=== PATIENT | male | born 1965 | race Caucasian/White ===

== ENCOUNTER 2016-06-04 05:57 | Inpatient (IN) | payer MEDICAID ==
[~2016-06-04] VITALS: Ht 165.1 cm; Wt 61.2 kg
[2016-06-04 06:19] VITALS: BP 172/97; PULSE 111; RESP 20; TEMP 98; O2SAT 96
[2016-06-04] MEDS ORDERED: chlordiazePOXIDE HCL 25 MG CAPSULE PO ONE ×2 (06:30→07:30)
[2016-06-04] MEDS ORDERED: cloNIDine HCL 0.1 MG TABLET PO ONE (06:30)
[2016-06-04] MEDS ORDERED: ATENOLOL 50 MG TABLET (TENORMIN) PO ONE (06:45)
[2016-06-04] MEDS ORDERED: NACL 0.9% 1,000 ML IV ONE (07:21)
[2016-06-04] MEDS ORDERED: LORazepam 2 MG/ML VIAL (FOR ER USE) IVP ONE (07:30)
[2016-06-04 07:38] LABS: BILIRUBIN,URINE NEGATIVE (NEGATIVE); BLOOD, URINE NEGATIVE (NEGATIVE); CLARITY/URINE CLEAR (CLEAR); COLOR,URINE YELLOW (YELLOW); GLUCOSE,URINE NEGATIVE (NEGATIVE); KETONES,URINE NEGATIVE (NEGATIVE); LEUKOCYTE ESTERASE ,URINE NEGATIVE (NEGATIVE); NITRITE, URINE NEGATIVE (NEGATIVE); PROTEIN URINE NEGATIVE (NEGATIVE); UROBILINOGEN,URINE 0.2 (0.2-1.0)
[2016-06-04 07:56] LABS: BASOPHILS % (AUTO) 0.5 % (0.0-2.0); EOSINOPHILS % (AUTO) 0.6 % (0.0-4.0); HEMATOCRIT 45.4 % (36-54); HEMOGLOBIN 15.3 g/dL (14.0-18.0); LYMPHOCYTES # (AUTO) 1.2 K/uL (1.0-5.5); LYMPHOCYTES % (AUTO) 15.6 % (20.5-51.5); MEAN CORPUSCULAR HEMOGLOBIN 31 pg (27-31); MEAN CORPUSCULAR HGB CONC 34 % (32-36); MEAN CORPUSCULAR VOLUME 92 fL (79.0-98.0); MONOCYTES # (AUTO) 0.5 K/uL (0.0-1.0); MONOCYTES % (AUTO) 6.8 % (1.7-9.3); NEUTROPHILS % (AUTO) 76.5 % (40.0-70.0); PLATELET COUNT (AUTO) 149 K/uL (130-430); RED BLOOD CELL COUNT(AUTO) 4.96 MIL/uL (4.2-6.2); RED CELL DISTRIBUTION WIDTH 13.6 % (9.0-15.0); WHITE BLOOD COUNT (AUTO) 7.7 K/uL (4.8-10.8)
[2016-06-04 08:00] LABS: PROTHROMBIN TIME 11.3 SECS (9.5-12.5)
[2016-06-04] MEDS ORDERED: FOLIC ACID 1 MG, THIAMINE HCL 100 MG, MAGNESIUM SULFATE 1 GM, MVI 10 ML in NACL 0.9% 1,... IV ONE (08:00)
[2016-06-04 08:03] LABS: BARBITURATE, URINE NEGATIVE (NEG <=200); BENZODIAZEPINE, URINE NEGATIVE (NEG <=150); CANNABINOID, URINE NEGATIVE (NEG <=50); COCAINE, URINE NEGATIVE (NEG <=150); METHAMPHETAMINES SCREEN,URINE NEGATIVE (NEG <=500); OPIATE, URINE NEGATIVE (NEG <=100); PHENCYCLIDINE SCREEN,URINE NEGATIVE (NEG <=25); UR TRICYCLIC ANTIDEPRESSANTS NEGATIVE (NEG <=300); URINE AMPHETAMINE NEGATIVE (NEG <=500); URINE METHADONE NEGATIVE (NEG <=200); URINE OXYCODONE SCREEN NEGATIVE (NEG <=100); URINE PROPOXYPHENE SCREEN NEGATIVE (NEG <=300)
[2016-06-04 08:04] LABS: CALCIUM 8.7 mg/dL (8.4-11.0); CREATININE 0.85 mg/dL (0.55-1.30); POTASSIUM 3.8 mmol/L (3.5-5.1)
[2016-06-04 08:09] LABS: ALBUMIN 4.2 g/dL (3.4-4.8); TOTAL BILIRUBIN 0.3 mg/dL (0.0-1.0); TOTAL PROTEIN, SERUM 8.4 g/dL (6.4-8.3)
[2016-06-04] MEDS ORDERED: NITROGLYCERIN LINGUAL 400 mCg/SPRAY TL ONE (08:30)
[2016-06-04] MEDS ORDERED: NITROGLYCERIN 1 INCH (GM) OINT. ONE (08:56)
[2016-06-04] MEDS ORDERED: NITROGLYCERIN 1 INCH (GM) OINT. TP ONE ×2 (09:00→10:45)
[2016-06-04 09:13] LABS: BARBITURATE, URINE NEGATIVE (NEG <=200); BENZODIAZEPINE, URINE NEGATIVE (NEG <=150); CANNABINOID, URINE NEGATIVE (NEG <=50); COCAINE, URINE NEGATIVE (NEG <=150); METHAMPHETAMINES SCREEN,URINE NEGATIVE (NEG <=500); OPIATE, URINE NEGATIVE (NEG <=100); PHENCYCLIDINE SCREEN,URINE NEGATIVE (NEG <=25); UR TRICYCLIC ANTIDEPRESSANTS NEGATIVE (NEG <=300); URINE AMPHETAMINE NEGATIVE (NEG <=500); URINE METHADONE NEGATIVE (NEG <=200); URINE OXYCODONE SCREEN NEGATIVE (NEG <=100); URINE PROPOXYPHENE SCREEN NEGATIVE (NEG <=300)
[2016-06-04] MEDS ORDERED: NITROGLYCERIN 0.4 MG TAB.SUBL SL PRN (10:45)
[2016-06-04] MEDS ORDERED: LORazepam 2 MG/ML VIAL IVP PRN (10:45)
[2016-06-04] MEDS ORDERED: ACETAMINOPHEN 325 MG TABLET PO PRN (10:45)
[2016-06-04 11:04] VITALS: BP 130/65; PULSE 70; RESP 18; TEMP 97; O2SAT 96
[2016-06-04] MEDS ORDERED: FLU VACC QS 2016-17(36MOS+)/PF 0.5 ML/SYR SYRINGE I.M. PRN (11:30)
[2016-06-04] MEDS ORDERED: PANTOPRAZOLE SODIUM 40 MG TAB PO ONE (12:45)
[2016-06-04] MEDS ORDERED: ASPIRIN 81 MG TAB.CHEW PO ONE (12:45)
[2016-06-04] MEDS: chlordiazePOXIDE HCL 25 MG CAPSULE PO SCH ×2 (15:04→20:50)
[2016-06-04 15:51] LABS: THYROID STIMULATING HORMONE 1.25 uIu/mL (0.34-4.82)
[2016-06-04 19:08] VITALS: BP 143/79; PULSE 65; RESP 18; TEMP 98.4; O2SAT 95
[2016-06-05] VITALS: BP 138/74; PULSE 60; RESP 20; TEMP 97.7; O2SAT 96
[2016-06-05 04:53] VITALS: BP 141/76; PULSE 66; RESP 18; TEMP 98; O2SAT 98
[2016-06-05 08:00] VITALS: BP 159/88; PULSE 67; RESP 18; TEMP 97.9; O2SAT 97
[2016-06-05 08:36] LABS: BASOPHILS % (AUTO) 0.2 % (0.0-2.0); EOSINOPHILS # (AUTO) 0.2 K/uL (0.0-0.4); EOSINOPHILS % (AUTO) 2.1 % (0.0-4.0); HEMATOCRIT 48.1 % (36-54); HEMOGLOBIN 16.2 g/dL (14.0-18.0); LYMPHOCYTES # (AUTO) 1.9 K/uL (1.0-5.5); LYMPHOCYTES % (AUTO) 23.7 % (20.5-51.5); MEAN CORPUSCULAR HEMOGLOBIN 30 pg (27-31); MEAN CORPUSCULAR HGB CONC 34 % (32-36); MEAN CORPUSCULAR VOLUME 90 fL (79.0-98.0); MONOCYTES # (AUTO) 0.6 K/uL (0.0-1.0); MONOCYTES % (AUTO) 7.4 % (1.7-9.3); NEUTROPHILS # (AUTO) 5.3 K/uL (1.8-7.7); NEUTROPHILS % (AUTO) 66.6 % (40.0-70.0); PLATELET COUNT (AUTO) 148 K/uL (130-430); RED BLOOD CELL COUNT(AUTO) 5.34 MIL/uL (4.2-6.2); RED CELL DISTRIBUTION WIDTH 13.6 % (9.0-15.0)
[2016-06-05] MEDS: chlordiazePOXIDE HCL 25 MG CAPSULE PO SCH ×3 (09:06→20:08)
[2016-06-05] MEDS: PANTOPRAZOLE SODIUM 40 MG TAB PO SCH (09:07)
[2016-06-05] MEDS: ASPIRIN 81 MG TAB.CHEW PO SCH (09:07)
[2016-06-05 09:50] LABS: CALCIUM 8.8 mg/dL (8.4-11.0); CREATININE 0.84 mg/dL (0.55-1.30); POTASSIUM 3.9 mmol/L (3.5-5.1); TOTAL BILIRUBIN 0.9 mg/dL (0.0-1.0)
[2016-06-05 09:51] LABS: ALBUMIN 3.8 g/dL (3.4-4.8); BILIRUBIN,DIRECT 0.2 mg/dL (0.0-0.3); TOTAL PROTEIN, SERUM 8.1 g/dL (6.4-8.3)
[2016-06-05] MEDS: FOLIC ACID 1 MG, THIAMINE HCL 100 MG, MAGNESIUM SULFATE 1 GM, MVI 10 ML in NACL 0.9% 1,... IV SCH (10:46)
[2016-06-05 11:07] LABS: HEPATITIS A AB, IgM Negative (Negative); HEPATITIS B CORE AB, IgM Negative (Negative); HEPATITIS B SURFACE AG Negative (Negative)
[2016-06-05 12:00] VITALS: BP 151/92; PULSE 62; RESP 21; TEMP 98; O2SAT 97
[2016-06-05] MEDS ORDERED: LISINOPRIL 10 MG TABLET (PRINIVIL) PO ONE (14:30)
[2016-06-05 16:00] VITALS: BP 138/81; PULSE 78; RESP 21; TEMP 97.2; O2SAT 97
[2016-06-05 20:00] VITALS: BP 136/85; PULSE 64; RESP 20; TEMP 98.1; O2SAT 97
[2016-06-06 00:20] VITALS: BP 133/80; PULSE 54; RESP 16; TEMP 98.6; O2SAT 98
[2016-06-06 03:39] VITALS: BP 134/76; PULSE 60; RESP 16; TEMP 97.6; O2SAT 96
[2016-06-06 06:38] LABS: BASOPHILS % (AUTO) 0.1 % (0.0-2.0); EOSINOPHILS # (AUTO) 0.3 K/uL (0.0-0.4); EOSINOPHILS % (AUTO) 6.4 % (0.0-4.0); HEMATOCRIT 44.3 % (36-54); HEMOGLOBIN 14.9 g/dL (14.0-18.0); LYMPHOCYTES # (AUTO) 0.9 K/uL (1.0-5.5); LYMPHOCYTES % (AUTO) 18.5 % (20.5-51.5); MEAN CORPUSCULAR HEMOGLOBIN 31 pg (27-31); MEAN CORPUSCULAR HGB CONC 34 % (32-36); MEAN CORPUSCULAR VOLUME 92 fL (79.0-98.0); MONOCYTES # (AUTO) 0.5 K/uL (0.0-1.0); MONOCYTES % (AUTO) 9.1 % (1.7-9.3); NEUTROPHILS # (AUTO) 3.4 K/uL (1.8-7.7); NEUTROPHILS % (AUTO) 65.9 % (40.0-70.0); PLATELET COUNT (AUTO) 106 K/uL (130-430); RED BLOOD CELL COUNT(AUTO) 4.82 MIL/uL (4.2-6.2); RED CELL DISTRIBUTION WIDTH 13.6 % (9.0-15.0)
[2016-06-06 07:16] LABS: WHITE BLOOD COUNT (AUTO) 5.1 K/uL (4.8-10.8)
[2016-06-06 07:25] LABS: CALCIUM 8.8 mg/dL (8.4-11.0); CREATININE 0.9 mg/dL (0.55-1.30); POTASSIUM 4.4 mmol/L (3.5-5.1)
[2016-06-06 07:40] VITALS: BP 134/86; PULSE 73; RESP 16; TEMP 96.1; O2SAT 98
[2016-06-06 07:52] LABS: ALBUMIN 3.6 g/dL (3.4-4.8); BILIRUBIN,DIRECT 0.1 mg/dL (0.0-0.3); TOTAL BILIRUBIN 0.7 mg/dL (0.0-1.0); TOTAL PROTEIN, SERUM 7.6 g/dL (6.4-8.3)
[2016-06-06] MEDS: ASPIRIN 81 MG TAB.CHEW PO SCH (08:43)
[2016-06-06] MEDS: chlordiazePOXIDE HCL 25 MG CAPSULE PO SCH ×2 (08:44→17:07)
[2016-06-06] MEDS: PANTOPRAZOLE SODIUM 40 MG TAB PO SCH (08:44)
[2016-06-06] MEDS: FOLIC ACID 1 MG, THIAMINE HCL 100 MG, MAGNESIUM SULFATE 1 GM, MVI 10 ML in NACL 0.9% 1,... IV SCH (08:45)
[2016-06-06] MEDS ORDERED: LISINOPRIL 10 MG TABLET (PRINIVIL) PO SCH (09:00)
[2016-06-06 11:22] VITALS: BP 132/93; PULSE 63; RESP 19; TEMP 97.1; O2SAT 93
[2016-06-06 15:11] VITALS: Ht 165.1 cm; Wt 61.2 kg
[2016-06-06 15:23] VITALS: BP 132/85; PULSE 58; RESP 19; TEMP 97.6; O2SAT 96
[2016-06-06] MEDS ORDERED: LISI10TA5 PO (17:42)
[2016-06-06] MEDS ORDERED: FAMO20TA8 PO (17:43)
[2016-06-06] MEDS ORDERED: LIB10 PO (17:44)
[2016-06-06 17:46] VITALS: BP 132/85; PULSE 58; RESP 19; TEMP 97.6; O2SAT 96
[2016-06-25 12:05] VITALS: O2SAT 95
== END 2016-06-06 18:50 | disposition home or self-care (01) | DRG 775 ==
LOC: SED 05:57 → SMU 09:20 → STU 09:50
PROVIDERS: ADMIT Internal Medicine; ATTEND Internal Medicine
DX: F10.229 Alcohol dependence with intoxication, unspecified (principal); I10 Essential (primary) hypertension; E78.5 Hyperlipidemia, unspecified; I51.7 Cardiomegaly; R07.89 Other chest pain; R73.03 Prediabetes; R79.89 Other specified abnormal findings of blood chemistry; Z59.0 Homelessness
CPT/HCPCS: 36415; 71010; 74000-TC; 76700-TC; 80048; 80053; 80061; 80074; 80076; 80307; 81003; 83036; 83690-TC; 83735-TC; 84443-TC; 84484; 85025; 85610-TC; 87045-TC; 87046; 87230-TC; 93005; 93306; 96361; 96374; 99285; G0482; J2060; J3411; J3475; J3490; J7030; Q2037

== ENCOUNTER 2016-09-10 11:25 | Emergency (ER) | payer MEDICAID ==
[~2016-09-10] VITALS: Ht 157.5 cm; Wt 81.6 kg
[2016-09-10 11:25] VITALS: BP_SYST 134
[~2016-09-10 11:25] MED LIST: FAMO20TA8 PO; LIB10 PO; LISI10TA5 PO
[2016-09-10 12:30] VITALS: BP_SYST 130
== END 2016-09-10 12:30 | disposition left against medical advice (07) ==
LOC: SED 11:25
DX: F10.129 Alcohol abuse with intoxication, unspecified (principal); R07.89 Other chest pain; E11.9 Type 2 diabetes mellitus without complications; I10 Essential (primary) hypertension; E78.00 Pure hypercholesterolemia, unspecified
CPT/HCPCS: 99283

== ENCOUNTER 2016-09-19 16:58 | Inpatient (IN) | payer MEDICAID ==
[~2016-09-19] VITALS: Ht 165.1 cm; Wt 73.0 kg
[2016-09-19 16:58] VITALS: BP 134/97; PULSE 116; RESP 24; TEMP 100.1; O2SAT 98
--- NOTE | 2016-09-19 16:58 | NUR ---
Pt BIB BLS and placed to ER hallway 1. Pt report given to RENEE Pearce.
[2016-09-19] MEDS ORDERED: NACL 0.9% 1,000 ML IV ONE (18:00)
[2016-09-19 18:02] LABS: BASOPHILS % (AUTO) 0.4 % (0.0-2.0); EOSINOPHILS % (AUTO) 0.2 % (0.0-4.0); HEMATOCRIT 41.6 % (36-54); HEMOGLOBIN 13.6 g/dL (14.0-18.0); LYMPHOCYTES # (AUTO) 1.1 K/uL (1.0-5.5); LYMPHOCYTES % (AUTO) 20.9 % (20.5-51.5); MEAN CORPUSCULAR HEMOGLOBIN 30 pg (27-31); MEAN CORPUSCULAR HGB CONC 33 % (32-36); MEAN CORPUSCULAR VOLUME 90 fL (79.0-98.0); MONOCYTES # (AUTO) 0.5 K/uL (0.0-1.0); MONOCYTES % (AUTO) 8.9 % (1.7-9.3); NEUTROPHILS # (AUTO) 3.6 K/uL (1.8-7.7); NEUTROPHILS % (AUTO) 69.6 % (40.0-70.0); RED BLOOD CELL COUNT(AUTO) 4.62 MIL/uL (4.2-6.2); RED CELL DISTRIBUTION WIDTH 14.4 % (9.0-15.0); WHITE BLOOD COUNT (AUTO) 5.2 K/uL (4.8-10.8)
[2016-09-19 18:06] LABS: CALCIUM 8.5 mg/dL (8.4-11.0); CREATININE 0.83 mg/dL (0.55-1.30); POTASSIUM 3.7 mmol/L (3.5-5.1)
[2016-09-19 18:26] LABS: ALBUMIN 4.4 g/dL (3.4-4.8); TOTAL BILIRUBIN 1.2 mg/dL (0.0-1.0); TOTAL PROTEIN, SERUM 8.2 g/dL (6.4-8.3)
[2016-09-19 18:30] LABS: PLATELET COUNT (AUTO) 39 K/uL (130-430)
--- NOTE | 2016-09-19 19:00 | NUR ---
Recieved report from Ramses DURAN. Will assume care.
--- NOTE | 2016-09-19 19:02 | NUR ---
Patient arrived to ED via BLS with c/o L flank pain and alcohol intoxication. Reports L flank pain 11/10 since this morning. EMS reports patient was found lying in street. Patient responds appropriately but is lethargic. Denies N/V. Reports drinking since this morning, unknown amount. Patient does not appear in immediate distress at this time. Will continue to monitor.
--- NOTE | 2016-09-19 19:30 | NUR ---
# 20 gauge angiocath placed to R AC. Use of asceptic technique. Opsite placed over site. Blood return noted. Blood for lab drawn from site. Flushed with 10 cc of normal saline. No evidence of infiltration noted. Patient tolerated well.
--- NOTE | 2016-09-19 19:50 | NUR ---
Sepsis protocol reviewed with Dr. Leon. Dr. Leon to initiate sepsis protocol.
[2016-09-19 20:07] LABS: BILIRUBIN,URINE NEGATIVE (NEGATIVE); BLOOD, URINE NEGATIVE (NEGATIVE); CLARITY/URINE CLEAR (CLEAR); COLOR,URINE YELLOW (YELLOW); GLUCOSE,URINE NEGATIVE (NEGATIVE); KETONES,URINE 1+ (NEGATIVE); LEUKOCYTE ESTERASE ,URINE NEGATIVE (NEGATIVE); NITRITE, URINE NEGATIVE (NEGATIVE); PROTEIN URINE TRACE (NEGATIVE)
[2016-09-19 20:15] LABS: BACTERIA,URINE FEW /HPF (None Seen); MUCUS,URINE None Seen /LPF (None Seen); RBC,URINE NONE SEEN /HPF (0-3); WBC,URINE 0-3 /HPF (0-3)
--- NOTE | 2016-09-19 20:15 | NUR ---
Patient transported off unit via gurney for CT of ABD by radiology team
--- NOTE | 2016-09-19 20:33 | NUR ---
ADMIT NOTE Received pt from ER to the floor with a diagnosis of ALCOHOL INTOXICATION. Admission process initiated. patient oriented to pain management, safety and call light-teach back done.
--- NOTE | 2016-09-19 20:40 | NUR ---
Patient returned to unit from CT via [facility].
[2016-09-19 20:44] VITALS: BP 156/106; PULSE 108; RESP 20; TEMP 99.5; O2SAT 94
--- NOTE | 2016-09-19 20:45 | NUR ---
Patient will be admitted to care of Dr. Leon. Admitted to telemetry unit. Will go to room 107B. Belongings list completed. Summary report printed. Report will be given at bedside. Transfer to telemetry via ACLS protocol. Licensed nurse present. IV present no signs or symptoms of infiltration.
[2016-09-19 20:48] LABS: PROTHROMBIN TIME 11.3 SECS (9.5-12.5)
--- NOTE | 2016-09-19 20:54 | NUR ---
CONSULTATION PAGED REASON FOR CONSULTATION:ELEVATED TROP WAS CONSULT CALLED? Y PERSON WHO WAS NOTIFIED:NELL CONSULTING PHYSICIAN: KADI MANAGER RENTAL SPECIALTY:CARDIO MANAGER RENTAL PHONE NUMBER:[phone] ORDER WAS STAT
--- NOTE | 2016-09-19 21:02 | NUR ---
MD CONSULT spoke to Dr. Cardoza, updated him on patient's status, states will see patient in am.
[2016-09-19] MEDS: MORPHINE 4 MG/ML INJ. SYRINGE IVP PRN (21:15)
[2016-09-19] MEDS: LR 1,000 ML IV SCH (21:19)
--- NOTE | 2016-09-19 21:21 | NUR ---
RN ROUNDS Patient awake, c/o of pain to left abdomen and bilateral legs, medicated with morphine 4 mg IVP for pain management. Educated on fall and safety precautions, bed alarm on, call light within reach, will monitor.
[2016-09-19 21:26] LABS: BARBITURATE, URINE NEGATIVE (NEG <=200); BENZODIAZEPINE, URINE NEGATIVE (NEG <=150); CANNABINOID, URINE NEGATIVE (NEG <=50); COCAINE, URINE NEGATIVE (NEG <=150); METHAMPHETAMINES SCREEN,URINE NEGATIVE (NEG <=500); OPIATE, URINE NEGATIVE (NEG <=100); PHENCYCLIDINE SCREEN,URINE NEGATIVE (NEG <=25); UR TRICYCLIC ANTIDEPRESSANTS NEGATIVE (NEG <=300); URINE AMPHETAMINE NEGATIVE (NEG <=500); URINE METHADONE NEGATIVE (NEG <=200); URINE OXYCODONE SCREEN NEGATIVE (NEG <=100); URINE PROPOXYPHENE SCREEN NEGATIVE (NEG <=300)
--- NOTE | 2016-09-19 22:17 | NUR ---
RN ROUNDS Patient asleep at this time. Respirations even and unlabored, IVF infusing. Call light within reach, safety precautions in place, will continue to monitor.
[2016-09-19 22:54] VITALS: BP 156/101; PULSE 114; RESP 20; TEMP 99.5; O2SAT 96
--- NOTE | 2016-09-19 23:23 | NUR ---
RN ROUNDS Patient awake, denies any pain at this time, lab at bedside for blood draw for second lactic acid. Will continue to monitor.
--- NOTE | 2016-09-19 23:41 | NUR ---
CRITICAL LAB Patient's second troponin level 0.070, relayed critical lab value to Dr. Cardoza, no new orders given.
--- NOTE | 2016-09-20 00:11 | NUR ---
RN ROUNDS Patient resting quietly in bed, vital signs stable. Safety precautions in place, call light remains within reach, will monitor.
[2016-09-20 00:16] VITALS: BP 139/87; PULSE 86; RESP 18; TEMP 99.4; O2SAT 93
[2016-09-20] MEDS: MORPHINE 4 MG/ML INJ. SYRINGE IVP PRN ×4 (01:25→17:35)
[2016-09-20] MEDS: ONDANSETRON HCL 4 MG/2 ML VIAL IVP PRN ×3 (01:25→21:10)
--- NOTE | 2016-09-20 01:29 | NUR ---
RN ROUNDS Patient c/o of nausea and pain, medicated with morphine and zofran IVP, patient educated on safety precautions, call light remains within reach, will reassess pain level shortly.
--- NOTE | 2016-09-20 02:18 | NUR ---
RN ROUNDS Patient asleep, respirations even and unlabored, safety precautions in place, call light remains within reach, will monitor.
--- NOTE | 2016-09-20 03:24 | NUR ---
RN ROUNDS/IV Patient ambulated to bathroom with nurse assistance, c/o of pain to iv site, new iv line placed on right forearm with 20 gauge catheter, good blood return noted, secured with opsite and tape, continued IVF of LR @ 100ml/hr.
[2016-09-20 03:47] VITALS: BP 163/89; PULSE 80; RESP 20; TEMP 98.1; O2SAT 93
--- NOTE | 2016-09-20 04:09 | NUR ---
RN ROUNDS Patient sleeping, respirations even and unlabored, vital signs stable. Safety precautions in place, call light remains within reach, will continue to monitor.
[2016-09-20] MEDS: LR 1,000 ML IV SCH ×2 (05:20→17:41)
--- NOTE | 2016-09-20 05:25 | NUR ---
RN ROUNDS Patient awake and c/o of pain, medicated with morphine 4 mg for pain management, patient denies any nausea or vomiting. Reinforced safety precautions, bed alarm on, call light remains within reach, will reassess pain level shortly.
[2016-09-20] MEDS: LORazepam 2 MG/ML VIAL IVP PRN (06:07)
--- NOTE | 2016-09-20 06:22 | NUR ---
RN ROUNDS/IV Patient accidently removed IV line, new iv line placed on right forearm with 20 gauge catheter, good blood return noted, secured with opsite and tape, continued IVF of LR @ 100ml/hr. Patient given Ativan 1mg IVP for anxiety and shaking. Safety measures maintained through out shift, reinforced to use call light for nurse assistance, light within reach, will continue to monitor until report given to am nurse.
[2016-09-20 07:07] LABS: CALCIUM 8.1 mg/dL (8.4-11.0); CREATININE 0.66 mg/dL (0.55-1.30); POTASSIUM 3.7 mmol/L (3.5-5.1)
[2016-09-20 07:15] LABS: ALBUMIN 3.9 g/dL (3.4-4.8); TOTAL BILIRUBIN 1.4 mg/dL (0.0-1.0); TOTAL PROTEIN, SERUM 7.6 g/dL (6.4-8.3)
[2016-09-20 07:41] LABS: BASOPHILS % (AUTO) 0.1 % (0.0-2.0); EOSINOPHILS % (AUTO) 0.3 % (0.0-4.0); HEMATOCRIT 40.6 % (36-54); HEMOGLOBIN 13.5 g/dL (14.0-18.0); LYMPHOCYTES # (AUTO) 0.7 K/uL (1.0-5.5); LYMPHOCYTES % (AUTO) 12.6 % (20.5-51.5); MEAN CORPUSCULAR HEMOGLOBIN 30 pg (27-31); MEAN CORPUSCULAR HGB CONC 33 % (32-36); MEAN CORPUSCULAR VOLUME 91 fL (79.0-98.0); MONOCYTES # (AUTO) 0.4 K/uL (0.0-1.0); MONOCYTES % (AUTO) 7.1 % (1.7-9.3); NEUTROPHILS # (AUTO) 4.5 K/uL (1.8-7.7); RED BLOOD CELL COUNT(AUTO) 4.47 MIL/uL (4.2-6.2); RED CELL DISTRIBUTION WIDTH 13.9 % (9.0-15.0); WHITE BLOOD COUNT (AUTO) 5.6 K/uL (4.8-10.8)
[2016-09-20 08:18] LABS: PLATELET COUNT (AUTO) 33 K/uL (130-430)
[2016-09-20 11:24] LABS: NEUTROPHILS % (AUTO) 79.9 % (40.0-70.0)
[2016-09-20 11:29] VITALS: BP 136/76; PULSE 90; RESP 19; TEMP 97.1; O2SAT 94
[2016-09-20] MEDS ORDERED: PANTOPRAZOLE SODIUM 40 MG TAB PO ONE (12:30)
[2016-09-20] MEDS ORDERED: THIAMINE HCL 100 MG TABLET PO ONE (12:45)
[2016-09-20] MEDS ORDERED: FOLIC ACID 1 MG TABLET PO ONE (12:45)
[2016-09-20 15:29] VITALS: BP 140/83; PULSE 80; RESP 19; TEMP 99.1; O2SAT 93
[2016-09-20 16:00] VITALS: BP 140/80; PULSE 80; RESP 20; TEMP 98; O2SAT 99
--- NOTE | 2016-09-20 16:12 | NUR ---
CONSULT: DR HACKETT Consult was called, david Porras, (Dr Roberto is field applications specialist) re abdominal pain
[2016-09-20 19:40] VITALS: BP 128/93; PULSE 78; RESP 17; TEMP 98.1; O2SAT 96
--- NOTE | 2016-09-20 19:40 | NUR ---
INITIAL NOTE PT. RECEIVED AAOX3, NO S/S OF SOB OR DISTRESS NOTED. VSS. PT. DENIES PAIN AT THIS TIME. SATING WELL ON ROOM AIR. IV ACCESS NOTED TO RIGHT FOREARM #22, WITH LR RUNNING AT 100ML / HR ORDERED. NO INFILTRATION NOTED. PLAN OF CARE HAS BEEN DISCUSSED, PT. EDUCATED ON USE OF CALL LIGHT AND ENCOURAGED TO CALL FOR ASSISTANCE. VERBALIZES UNDERSTANDING. WILL CONT. TO MONITOR FOR CHANGES.SAFETY AND FALL PRECAUTIONS IN PLACE. CALL LIGHT IN REACH.
[2016-09-20] MEDS ORDERED: PANTOPRAZOLE SODIUM 40 MG/VIAL (PROTONIX) IVP ONE (21:30)
--- NOTE | 2016-09-20 22:01 | NUR ---
ROUNDS ASSISTED PT TO THE RESTROOM. ABLE TO WALK WITH STEADY GAIT. NO S/S OF SOB OR DISTRESS. IV FLUIDS CONT. TO INFUSE WELL ORDERED. ASSISTED PT. BACK TO BED AND IN COMFORTABLE POSITION. PT. DENIES PAIN. WILL CONT. TO MONITOR FOR CHANGES. SAFETY AND FALL PRECAUTIONS IN PLACE. CALL LIGHT IN REACH. BED ALARM ON.
--- NOTE | 2016-09-21 00:04 | NUR ---
ROUNDS PT. STATES HE IS FEELING VERY ANXIOUS. STATES HE THINKS HIS FAMILY MEMBERS ARE HERE. TOLD PT. THAT HIS FAMILY IS NOT HERE AT THIS TIME. PT. ASKED IF HE CAN HAVE SOMETHING TO EASE HIS ANXIETY. WILL GIVE PRN ATIVAN ORDERED. SAFETY AND FALL PRECAUTIONS IN PLACE. CALL LIGHT IN REACH.
[2016-09-21] MEDS: LORazepam 2 MG/ML VIAL IVP PRN (00:07)
[2016-09-21 01:10] VITALS: BP 138/86; PULSE 62; RESP 17; TEMP 98.2; O2SAT 95
--- NOTE | 2016-09-21 02:09 | NUR ---
ROUNDS PT. RESTING IN BED WITH EYES CLOSED. NO S/S OF SOB OR DISTRESS. NO FACIAL GRIMACING FOR PAIN. IV FLUIDS CONT. TO INFUSE WELL. WILL CONT. TO MONITOR FOR CHANGES. SAFETY AND FALL PRECAUTIONS IN PLACE. CALL LIGHT IN REACH.
--- NOTE | 2016-09-21 04:39 | NUR ---
ROUNDS PT RESTING IN BED WITH EYES CLOSED.CHEST RISE AND FALL NOTED. NO S/S OF SOB OR DISTRESS. IV FLUIDS INFUSING WELL ORDERED. WILL CONT. TO MONITOR FOR CHANGES. SAFETY AND FALL PRECAUTIONS IN PLACE. CALL LIGHT IN REACH.
[2016-09-21] MEDS: LR 1,000 ML IV SCH ×2 (04:50→16:53)
[2016-09-21 05:07] VITALS: BP 141/75; PULSE 64; RESP 16; TEMP 97.6; O2SAT 96
--- NOTE | 2016-09-21 06:50 | NUR ---
CLOSING NOTE PT. RESTING IN BED WITH EYES CLOSED. CHEST RISE AND FALL NOTED. NO S/S OF SOB OR DISTRESS NOTED AT THIS TIME. NO FACIAL GRIMACING INDICATING PAIN. ALL NECESSARY NEEDS WERE MET THIS SHIFT. SAFETY AND FALL PRECAUTIONS WERE MAINTAINED. WILL ENDORSE CARE TO AM NURSE. CALL LIGHT IN REACH. BED IN LOWEST LOCKED POSITION.
--- NOTE | 2016-09-21 07:10 | NUR ---
AM ROUNDS Pt sleeping...Respirations even/unlabored...No distress noted...will cont to monitor and return when pt wakes up
[2016-09-21 08:00] LABS: ALBUMIN 3.6 g/dL (3.4-4.8); CALCIUM 8.5 mg/dL (8.4-11.0); CREATININE 0.75 mg/dL (0.55-1.30); POTASSIUM 3.2 mmol/L (3.5-5.1); TOTAL BILIRUBIN 1.4 mg/dL (0.0-1.0); TOTAL PROTEIN, SERUM 7.1 g/dL (6.4-8.3)
[2016-09-21 08:02] LABS: BASOPHILS % (AUTO) 0.1 % (0.0-2.0); EOSINOPHILS # (AUTO) 0.1 K/uL (0.0-0.4); EOSINOPHILS % (AUTO) 1.8 % (0.0-4.0); HEMOGLOBIN 13.8 g/dL (14.0-18.0); LYMPHOCYTES # (AUTO) 0.7 K/uL (1.0-5.5); LYMPHOCYTES % (AUTO) 14.4 % (20.5-51.5); MEAN CORPUSCULAR HEMOGLOBIN 31 pg (27-31); MEAN CORPUSCULAR HGB CONC 34 % (32-36); MEAN CORPUSCULAR VOLUME 91 fL (79.0-98.0); MONOCYTES # (AUTO) 0.5 K/uL (0.0-1.0); MONOCYTES % (AUTO) 10.6 % (1.7-9.3); NEUTROPHILS # (AUTO) 3.7 K/uL (1.8-7.7); RED CELL DISTRIBUTION WIDTH 13.5 % (9.0-15.0)
[2016-09-21 08:21] LABS: PLATELET COUNT (AUTO) 33 K/uL (130-430)
[2016-09-21] MEDS: FOLIC ACID 1 MG TABLET PO SCH (09:27)
[2016-09-21] MEDS: THIAMINE HCL 100 MG TABLET PO SCH (09:27)
--- NOTE | 2016-09-21 09:31 | NUR ---
PT LYING IN BED, EYES CLOSED. NO DISTRESS NOTED, WILL CONT TO MONITOR
[2016-09-21] MEDS: PANTOPRAZOLE SODIUM 40 MG/VIAL (PROTONIX) IVP SCH (10:00)
[2016-09-21 10:23] LABS: NEUTROPHILS % (AUTO) 73.1 % (40.0-70.0)
--- NOTE | 2016-09-21 11:37 | NUR ---
PT AMBULATED TO RESTROOM WITH STAND-BY ASSISTANCE
[2016-09-21] MEDS ORDERED: POTASSIUM CHLORIDE 20 MEQ TAB.PRT.SR PO ONE (12:00)
[2016-09-21] MEDS ORDERED: SPIRONOLACTONE 50 MG TABLET (ALDACTONE) PO ONE (12:30)
--- NOTE | 2016-09-21 12:30 | NUR ---
PT SITTING AT EDGE OF BED, EATING LUNCH PT TOLERATING REGULAR DIET WELL...WILL CONT TO MONITOR
[2016-09-21 12:36] VITALS: BP 155/86; PULSE 56; RESP 16; TEMP 98.4; O2SAT 97
--- NOTE | 2016-09-21 15:08 | NUR ---
ROUNDS PT STABLE. LYING IN BED WATCHING TV....WILL CONT TO MONITOR
[2016-09-21 16:05] VITALS: BP 139/99; PULSE 86; RESP 16; TEMP 97.9; O2SAT 94
--- NOTE | 2016-09-21 17:40 | NUR ---
IV RE-INSERTION: Complaining of pain to IV site. Restarted on RFA 20g. Successful after FIRST attempts. Resumed current IVF of LR and regulated @ 100 per hour. Will observe for any signs of infiltration.
--- NOTE | 2016-09-21 18:12 | NUR ---
PT C/O HEADACHE...DR LOIDA HANNAH FOR TYLENOL
[2016-09-21] MEDS ORDERED: ACETAMINOPHEN 325 MG TABLET PO PRN (18:30)
--- NOTE | 2016-09-21 18:58 | NUR ---
ROUNDS PT STABLE...TYLENOL GIVEN...WILL CONT TO MONITOR
--- NOTE | 2016-09-21 19:20 | NUR ---
OPENING NOTES REPORT RECEIVED AT BEDSIDE. PT SITTING UP IN BED, QUIETLY RESTING. AOX3, TO PERSON, TIME, PLACE. PATIENT IS CONFUSED TO WHY HE IS IN THE HOSPITAL. PT DENIES PAIN. IV PATENT AND INFUSING WITH NO SIGNS OF INFILTRATION. NO S/S OF ACUTE DISTRESS NOTED. FALL PRECAUTIONS IN PLACE, CALL LIGHT WITHIN REACH.
[2016-09-21 20:15] VITALS: BP 131/100; PULSE 93; RESP 16; TEMP 98.2; O2SAT 97
--- NOTE | 2016-09-21 21:20 | NUR ---
ROUNDS PT IS SLEEPING WITH VISIBLE RISE AND FALL OF CHEST, AUDIBLE SNORING. IV INFUSING WITH NO SIGNS OF INFILTRATION. NO S/S OF ACUTE DISTRESS NOTED. FALL PRECAUTIONS IN PLACE, CALL LIGHT WITHIN REACH.
--- NOTE | 2016-09-22 01:09 | NUR ---
STOMACH PAIN AND ANXIETY PATIENT IS COMPLAINING OF STOMACH DISCOMFORT AND PAIN. PATIENT DENIES PAIN MEDICATION. PATIENT IS ANXIOUS.
[2016-09-22] MEDS: LORazepam 2 MG/ML VIAL IVP PRN (01:11)
[2016-09-22] MEDS: LR 1,000 ML IV SCH ×2 (01:14→08:15)
[2016-09-22 01:39] VITALS: BP 151/105; PULSE 80; RESP 17; TEMP 97.6; O2SAT 96
--- NOTE | 2016-09-22 03:00 | NUR ---
ROUNDS PATIENT IS SLEEPING WITH VISIBLE RISE AND FALL OF CHEST NOTED. NO ACUTE S/S OF DISTRESS. FALL PRECAUTIONS IN PLACE, CALL LIGHT WITHIN REACH. WILL CONTINUE TO MONITOR.
[2016-09-22 04:57] VITALS: BP 166/98; PULSE 82; RESP 16; TEMP 99.4; O2SAT 99
--- NOTE | 2016-09-22 06:29 | NUR ---
CLOSING NOTES PT IS SLEEPING IN BED WITH VISIBLE RISE AND FALL OF CHEST NOTED, AUDIBLE SNORING. IV PATENT AND INFUSING WITH NO SIGNS OF INFILTRATION. NO S/S OF ACUTE DISTRESS NOTED. FALL PRECAUTIONS IN PLACE, CALL LIGHT WITHIN REACH. WILL ENDORSE CARE TO DAYSHIFT NURSE.
[2016-09-22 07:20] LABS: CALCIUM 9.4 mg/dL (8.4-11.0); CREATININE 0.82 mg/dL (0.55-1.30); POTASSIUM 3.6 mmol/L (3.5-5.1)
[2016-09-22 08:00] LABS: BASOPHILS % (AUTO) 0.1 % (0.0-2.0); EOSINOPHILS # (AUTO) 0.2 K/uL (0.0-0.4); EOSINOPHILS % (AUTO) 3.3 % (0.0-4.0); HEMOGLOBIN 15.2 g/dL (14.0-18.0); LYMPHOCYTES # (AUTO) 0.9 K/uL (1.0-5.5); LYMPHOCYTES % (AUTO) 18.9 % (20.5-51.5); MEAN CORPUSCULAR HEMOGLOBIN 30 pg (27-31); MEAN CORPUSCULAR HGB CONC 33 % (32-36); MEAN CORPUSCULAR VOLUME 91 fL (79.0-98.0); MONOCYTES # (AUTO) 0.6 K/uL (0.0-1.0); MONOCYTES % (AUTO) 11.6 % (1.7-9.3); NEUTROPHILS # (AUTO) 3.1 K/uL (1.8-7.7); NEUTROPHILS % (AUTO) 66.1 % (40.0-70.0); RED BLOOD CELL COUNT(AUTO) 5.05 MIL/uL (4.2-6.2); RED CELL DISTRIBUTION WIDTH 13.7 % (9.0-15.0); WHITE BLOOD COUNT (AUTO) 4.8 K/uL (4.8-10.8)
--- NOTE | 2016-09-22 08:00 | NUR ---
AM Initial notes Pt aaox4. No complaints of pain or discomfort. No sob, difficulty breathing or distress noted. IV to left forearm #20g patent and flushing. Educated about fall and safety. Encouraged to call for assistance. Call light within reach. Will monitor.
[2016-09-22] MEDS: PANTOPRAZOLE SODIUM 40 MG/VIAL (PROTONIX) IVP SCH (08:12)
[2016-09-22 08:19] VITALS: BP 152/93; PULSE 105; RESP 18; TEMP 97.6; O2SAT 100
[2016-09-22 08:24] LABS: PLATELET COUNT (AUTO) 47 K/uL (130-430)
--- NOTE | 2016-09-22 08:47 | NUR ---
Nutrition Update Jonathon Scale 18 noted. Pt admitted for alcohol intoxication. Diet: regular BMI: 26.8 kg/m2 RD to follow per nutrition care standards.
[2016-09-22] MEDS ORDERED: SPIRONOLACTONE 50 MG TABLET (ALDACTONE) PO SCH (09:00)
--- NOTE | 2016-09-22 09:10 | NUR ---
Dr. Sony SINGLETARY doing rounds. Plan of care discussed.
--- NOTE | 2016-09-22 09:46 | NUR ---
Shower Pt in the shower.
[2016-09-22] MEDS: THIAMINE HCL 100 MG TABLET PO SCH (09:51)
[2016-09-22] MEDS: FOLIC ACID 1 MG TABLET PO SCH (09:52)
--- NOTE | 2016-09-22 11:00 | NUR ---
Rounds Pt awake ambulating inside room. No significant changes noted. Encouraged to call for assistance. Will monitor.
[2016-09-22 11:31] VITALS: BP 147/96; PULSE 81; RESP 19; TEMP 97.2; O2SAT 96
--- NOTE | 2016-09-22 11:53 | NUR ---
Social Service Note: Pt referred to clinical social work therapist by physician and nursing due to pt being homeless. Pt is known to [facility] from previous admission. Pt has been on the streets for a few months. Pt states that he goes to his families' houses to shower and stay for a few days at a time. Pt states that he has been to shelters in the past and does not like the environment. Pt states that he would rather go back to the streets or try to stay with family members. [facility] has provided pt with homeless assistance resources. QUICK TECHNICIAN will remain available for support and will follow up as needed.
[2016-09-22] MEDS ORDERED: FOLI-43 PO ×2 (12:58→13:42)
[2016-09-22] MEDS ORDERED: PRO40 ×2 (12:58→13:41)
[2016-09-22] MEDS ORDERED: THIA50TA2 PO (12:59)
[2016-09-22] MEDS ORDERED: SPIR50TA PO ×2 (13:02→13:43)
[2016-09-22 13:37] VITALS: BP 147/96; PULSE 81; RESP 19; TEMP 97.2; O2SAT 96
[2016-09-22] MEDS ORDERED: THIA100T13 PO (13:42)
== END 2016-09-22 14:04 | disposition home or self-care (01) | DRG 280 ==
LOC: EDBD 16:58 → SED 16:58 → STU 19:57 → MERGE 19:57 → STU 20:42 → SMU 09-20 17:10
PROVIDERS: ADMIT Internal Medicine; ATTEND Internal Medicine
DX: K70.31 Alcoholic cirrhosis of liver with ascites (principal); D69.6 Thrombocytopenia, unspecified; K29.20 Alcoholic gastritis without bleeding; I10 Essential (primary) hypertension; F10.229 Alcohol dependence with intoxication, unspecified; K76.0 Fatty (change of) liver, not elsewhere classified; E11.9 Type 2 diabetes mellitus without complications; Z59.0 Homelessness; Z83.3 Family history of diabetes mellitus; Z80.8 Family history of malignant neoplasm of other organs or systems
CPT/HCPCS: 36415; 71010; 80048; 80053; 80307; 81000-TC; 83605; 83690-TC; 83735-TC; 84484; 85025; 85610-TC; 87040-TC; 87081; 93005; 93306; 96360; 99285; C9113; J2060; J2270; J2405; J7030; J7120